=== PATIENT | female | born 1970 | race Caucasian/White ===

== ENCOUNTER 2020-09-04 10:39 | Emergency (ER) | payer OTHER, SELFPAY ==
[2020-09-04 10:48] VITALS: BP 133/92; PULSE 87; RESP 16; TEMP 36.3; O2SAT 100
--- NOTE | 2020-09-04 11:16 | ED.GENADULT ---
HPI - General Adult General Chief complaint: Urogenital-Female Stated complaint: POS UTI Source: patient Mode of arrival: ambulatory Limitations: no limitations History of Present Illness HPI narrative: Patient presents for evaluation of urinary symptoms for the last few weeks. She reports urinary urgency and dysuria. In the last few days she has developed some right flank pain. Denies any fever, chills, nausea, vomiting. He did have some cramping abdominal region yesterday. She took cranberry pills and cranberry juice with only some improvement. She states she had a dental extraction and was clindamycin for this a few weeks ago. Denies any additional complaints or concerns. She has a hx of colon cancer, s/p hemicolectomy and chemo, in remission for the last eight years. Related Data Allergies Allergy/AdvReac Type Severity Reaction Status Date / Time Penicillins Allergy Unknown Verified 09/04/20 11:01 Review of Systems Review of Systems: Narrative: CONSTITUTIONAL: Denies fever, chills, or sweats. EYES: Denies visual changes, redness, or discharge. ENT: Denies rhinorrhea, congestion, sore throat, or otalgia. CARDIOVASCULAR: Denies chest pain, palpitations, or edema. RESPIRATORY: Denies cough or dyspnea. GASTROINTESTINAL: Reports abdominal cramping yesterday, now resolved. Denies any nausea, vomiting, or diarrhea. GENITOURINARY: Reports dysuria, urinary urgency and right flank pain SKIN: Denies rash or itching. MUSCULOSKELETAL: Denies back pain, joint pain, or myalgia. NEUROLOGIC: Denies headache, numbness, dizziness, or weakness. PSYCHIATRIC: Denies anxiety or depression. FOR[facility]LY [facility] Past Medical History Medical History (Updated 09/04/20 @ 11:23 by OSMAR Jurado, IVÁN) Colon cancer Tetralogy of Fallot Surgical History Surgical History H/O hemicolectomy H/O tooth extraction Family History Family History Mother No pertinent past medical history Father No pertinent past medical history Social History Social History Smoking status: Never smoker Alcohol intake: current Alcohol use details: social Substance use: never Gender identity (if verbalized by the patient): Female Exam Narrative: Exam Narrative: GENERAL: Well-appearing, well-nourished, and in no acute distress. HEAD: Normocephalic, atraumatic. EYES: PERRLA and EOMI. ENT: Nares clear, no rhinorrhea or epistaxis. Mucous membranes moist. Oropharynx without tonsillar hypertrophy exudate or other lesions. Bilateral TMs pearly pruitt nonbulging NECK: Supple. No adenopathy or masses. No carotid bruits or JVD CHEST: Clear to auscultation. No respiratory distress. No wheezes rales or rhonchi HEART: Regular rate and rhythm. No murmur heard. Normal peripheral pulses. ABDOMEN: Soft, nontender, nondistended, normal active bowel sounds. EXTREMITIES: Normal range of motion. No edema. SKIN: Warm, dry, no rash. NEURO: No focal deficits. Alert and oriented x3. PSYCH: Normal mood and affect. Course Course Emergency Course: Patient presents for evaluation of urinary symptoms for the last 2 weeks. She denies any fever, chills, nausea, vomiting. She had urine dipstick was positive for leukocytes but negative for nitrites. We will send for urinalysis and reflex to culture. Given right flank pain, will treat as pyelonephritis Vital Signs Vital signs: Vital Signs Temperature 36.3 C L 09/04/20 10:48 Pulse Rate 87 09/04/20 10:48 Respiratory Rate 16 09/04/20 10:48 Blood Pressure 133/92 H 09/04/20 10:48 Pulse Oximetry 100 09/04/20 10:48 Temperature 36.3 C L 09/04/20 10:48 Pulse Rate 87 09/04/20 10:48 Respiratory Rate 16 09/04/20 10:48 Blood Pressure 133/92 H 09/04/20 10:48 Pulse Oximetry 100 09/04/20 10:48 Medical Decision Making Di
== END 2020-09-04 11:32 | disposition home or self-care (01) ==
PROVIDERS: Emergency Provider Nurse Practitioner
DX: N39.0 Urinary tract infection, site not specified (principal); Z85.038 Personal history of other malignant neoplasm of large intestine; Q21.3 Tetralogy of Fallot
CPT/HCPCS: 81003; 87077; 87086; 87088; 87186; 99213; G0463

== ENCOUNTER 2023-02-23 21:59 | Emergency (ER) | payer OTHER, BC, SELFPAY ==
--- NOTE | ~2023-02-23 | CT_ITS ---
EXAMINATION: CT brain wo con INDICATION: Headache COMPARISON: None TECHNIQUE: Standard unenhanced head CT. The dose-length product (DLP) was 983.67 mGy-cm. The mA was a djusted according to patient size. Iterative reconstruction technique was employed. FINDINGS: There is no intracranial hemorrhage, acute infarction, or abnormal mass lesion. The ventric les are normal. There is no abnormal mass effect or midline shift. The pruitt-white matter differentiat ion is normal. The basal cisterns are patent. The orbits are normal. The paranasal sinuses, mastoids and calvarium are normal. IMPRESSION: 1. No acute intracranial abnormality. Reviewed, dictated and finalized at location A.
--- NOTE | ~2023-02-23 | CT_ITS ---
EXAMINATION: CT cervical spine wo con DATE: 02/23/2023 23:53 INDICATION: Neck pain TECHNIQUE: Computed tomography (CT) of the cervical spine was performed without intravenous contrast. The dose-length product (DLP) was 143.35 mGy-cm. Automated exposure control and iterative reconstruc tion technique were employed. COMPARISON: None FINDINGS: There are 2 mm of retrolisthesis of C5 on C6 and C6 on C7. The vertebral body heights are m aintained. There is mild loss of intervertebral disc space height at C5-6 and C6-7. The odontoid proc ess is intact. The prevertebral soft tissues are normal. IMPRESSION: 1. Mild cervical spondylosis without acute findings. Reviewed, dictated and finalized at location A.
--- NOTE | ~2023-02-23 | XR_ITS ---
EXAMINATION: XR chest 2V DATE: 02/24/2023 01:23 INDICATION: Chest pain TECHNIQUE: Frontal and lateral views of the chest are obtained COMPARISON: None available FINDINGS: The lungs are free of acute opacities. No pleural effusion or pneumothorax. The heart size is normal. Small median sternotomy wires are consistent with pediatric cardiac surgery. The visualize d bones and soft tissues are unremarkable. IMPRESSION: 1. No acute cardiopulmonary abnormality. Reviewed, dictated and finalized at location A.
[2023-02-23 22:01] VITALS: BP 149/90; PULSE 106; RESP 16; O2SAT 100
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
[2023-02-23 23:09] VITALS: BP 129/84; PULSE 101; RESP 12
[2023-02-23 23:16] VITALS: BP 126/85; PULSE 102; RESP 14; O2SAT 100
[2023-02-24 00:19] VITALS: PULSE 110; RESP 16; O2SAT 100
--- NOTE | 2023-02-24 00:41 | ECG_ITS ---
Measurements Intervals [place] Rate: 121 P: 48 ID: [id number] QRS: 44 QRSD: 127 T: 70 QT: 344 QTc: 488 Interpretive Statements SINUS TACHYCARDIA RIGHT BUNDLE BRANCH BLOCK ABNORMAL ECG NO PREVIOUS ECG AVAILABLE FOR COMPARISON Electronically Signed On 02-24-2023 7:42:43 CDT by Elliott Lau D.O.
[2023-02-24 01:21] LABS: Basophils Absolute Auto 0.1 K/mm3 (0.0-0.1); Basophils Percent Auto 0.5 % (0.2-1.2); Eosinophils Absolute Auto 0.1 K/mm3 (0-0.3); Eosinophils Percent Auto 0.6 % (0-4.4); Hematocrit 43.6 % (37.0-47.0); Hemoglobin 13.6 g/dL (12.0-15.0); Immature Granulocyte Absolute 0.06 K/mm3 (0.00-0.031); Immature Granulocyte Percent A 0.4 % (0-0.5); Lymphocytes Absolute Auto 1.77 K/mm3 (0.9-3.2); Lymphocytes Percent Auto 11.3 % (18.3-44.2); Mean Corpuscular HGB Conc 31.2 g/dl (32-36); Mean Corpuscular Hemoglobin 25.8 pg (26-34); Mean Corpuscular Volume 82.7 fl (80-100); Mean Platelet Volume 9.6 fl (7.4-10.4); Monocytes Absolute Auto 0.5 K/mm3 (0.1-0.6); Monocytes Percent Auto 3.3 % (2.6-8.5); Neutrophils Absolute Auto 13.2 K/mm3 (1.3-6.7); Neutrophils Percent Auto 83.9 % (45.5-73.1); Platelet Count Result 328 k/mm3 (150-375); Red Blood Count 5.27 M/mm3 (4.2-5.4); White Blood Count 15.7 K/mm3 (4.5-10.0)
[2023-02-24 01:32] VITALS: PULSE 122; RESP 13; O2SAT 100
[2023-02-24 01:33] LABS: Alanine Aminotransferase 28 U/L (6-35); Albumin Level 4.6 g/dL (3.5-5.1); Alkaline Phosphatase 74 U/L (38-126); Anion Gap 13 mmol/L (8-16); Aspartate Amino Transferase 35 U/L (14-36); Bilirubin,Total 0.3 mg/dL (0.2-1.3); Blood Urea Nitrogen 11 mg/dL (7-17); Calcium 9.1 mg/dL (8.4-10.2); Carbon Dioxide 21 mmol/L (22-30); Chloride 112 mmol/L (98-107); Estimated Glomerular Filt Rate > 60; Glucose 112 mg/dL (65-110); Potassium 3.6 mmol/L (3.4-5.0); Sodium 146 mmol/L (137-145)
[2023-02-24 01:45] LABS: Troponin I < 0.012 ng/mL (0.000-0.034)
[2023-02-24 04:42] LABS: Troponin I < 0.012 ng/mL (0.000-0.034)
[2023-02-24 05:13] VITALS: TEMP 37
[2023-02-24 05:15] VITALS: BP 137/88; PULSE 98; RESP 16; O2SAT 100
== END 2023-02-24 05:15 | disposition home or self-care (01) ==
PROVIDERS: Preventive Medicine Aerospace Medicine; Emergency Provider Emergency Medicine
DX: R07.9 Chest pain, unspecified (principal); V89.2XXA Person injured in unspecified motor-vehicle accident, traffic, initial encounter; Z85.038 Personal history of other malignant neoplasm of large intestine
CPT/HCPCS: 36415; 70450; 71046; 72125; 80053; 84484; 85025; 93005; 99284

== ENCOUNTER 2025-01-16 10:10 | Emergency (ER) | payer BC, SELFPAY ==
--- NOTE | ~2025-01-16 | XR_ITS ---
EXAMINATION: XR ankle LT min 3V DATE: 01/16/2025 11:07 INDICATION: Left ankle pain and swelling post fall TECHNIQUE: Anteroposterior, oblique, mortise, and lateral views of the left ankle were obtained. COMPARISON: None. FINDINGS: There is an oblique fracture through the distal fibula with a fracture plane exiting medially at the level of the tibiotalar joint. There is one cortical width lateral displacement. No other fracture i dentified. Specifically the medial and posterior malleoli as well as the talar dome are intact. Ank le mortise remains congruent. 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 Small plantar calcaneal spur. S oft tissue swelling overlying the lateral malleolus and extending anterior to the ankle. No ankle johana nt effusion. IMPRESSION: 1. Minimally displaced oblique fracture of the distal left fibula consistent with a Perdomo type B inju ry pattern. IMPRESSION: 1. Reviewed, dictated and finalized at location A. [facility] IMPRESSION: 1. Minimally displaced oblique fracture of the distal left fibula consistent wi th a Perdomo type B injury pattern. IMPRESSION: 1.
--- OUTSIDE RECORDS SUMMARY | 2025-01-16 10:14 | XMS_ITS | Clinical Summary ---
Author Organization [facility] Address [address] [place] [address] Care Team Providers Care Traveling Missionary Name Role Phone Unknown, Notinfile Primary Care Provider Unavail able Allergies Active Allergy Reactions Criticality Noted Date Comments Penicillins Rash Medium Reaction: Rash, Medications cholecalciferol (VITAMIN D-3) 2,000 unit tablet Take 1 tablet (2,000 Units total) by mouth daily Active b complex vitamins capsule Take 1 capsule by mouth daily Active iron 18 mg tablet Take 2 tablets by mouth daily Active multivitamin capsule Take 1 capsule by mouth daily Active zinc acetate 25 mg (zinc) capsule Take by mouth Active magnesium oxide 400 mg magnesium capsule Take by mouth Active folic acid (FOLVITE) 400 mcg tablet Take 1 tablet (400 mcg total) by mouth daily Active celecoxib (CeleBREX) 200 mg capsuleIndicatio ns:Bilateral shoulder pain, unspecified chronicity Take 1 capsule (200 mg total) by mouth daily for 14 days 14 capsule 09/17/2024 Active Active Problems Problem Noted Date Diagnosed Date Pancreatic cyst 11/04/2023 Chronic deafness 10/03/2021 Diarrhea 08/17/2019 Edema 08/17/2019 Gastroesophageal reflux disease 08/07/2019 Pulmonary insufficiency 09/12/2018 PFO (patent foramen ovale) 08/01/2018 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 H/O atrioventricular jeanie ablation 08/01/2018 History of uterine leiomyoma 06/20/2017 Intramural leiomyoma of uterus 06/20/2017 Hepatomegaly, not elsewhere classified 7 Liver mass 04/25/2017 History of malignant neoplasm of colon 6 Fallot's triad 04/01/2015 Overview (03/08/2017): Fallot trilogy Malignant neoplasm of colon 04/01/2015 Overview (03/08/2017): Colon cancer Abnormal magnetic resonance imaging study 2013 Supraventricular tachycardia 05/05/2013 Anemia 04/20/2013 Sebaceous cyst 02/26/2013 Palpitations 02/13/2012 Pulmonary valve insufficiency 05/10/2011 Assessment & Plan (02/14/2023 12:15 PM CDT): ToF sp repair in 1977 with residual severe PI and mild RV enlargement but normal function. ECHO pending from today. Asymptomatic. MRI in follow up in one year. Right ventricular hypertrophy 05/10/2011 Tetralogy of Fallot s/p repair 04/16/2011 Resolved Problems Problem Noted Date Diagnosed Date Resolved Date TOF (tetralogy of Fallot) 08/01/2018 Carcinoma of colon (CMS/HCC) 10/06/2014 08/22/2021 Encounters Date Type Department Care Team Description 01/11/2025 Telephone [facility] Oncology [address] [place] [address] Cordelia Pena RN 01/05/2025 Telephone [facility] Oncology [address] [place] [address] Cordelia Pena RN 12/22/2024 Telephone [facility] Gastroenterology [facility] Advanced Medicine [address] [place] [address] [place] [address] Dandre Yañez 12/17/2024 Telephone [facility] Gastroenterology [address] [facility] Advanced [facility] [address] [place] [address] [place] [address] Dandre Yañez 12/11/2024 Telephone [facility] Oncology [address] [place] [address] Radha Le CMA from Last 3 Months Immunizations Name Administration Dates Next Due Influenza, Quadrivalent, Split, Intramuscular Influenza, Quadrivalent, Spl it, Preservative Free, Intramuscular 09/14/2020,10/17/2016 Influenza, Trivalent, Preservative Free, Intramu scular 09/08/2015,09/24/2012 Moderna SARS-CoV-2 Monovalent Vaccination (12+ Y RS) 02/14/2021,01/11/2021 Pneumococcal Polysaccharide PPV23 09/08/2015 Tdap 10/08/2016,10/08/2016 Surgical History Surgery Date Site/Laterality Comments PORT REMOVAL 02/04/2013 N/A SECTION ABLATION TUBAL LIGATION COLECTOMY PARTIAL / TOTAL COLONOSCOPY UPPER GASTROINTESTINAL ENDOSCOPY Medical History Medical History Date Comments History of colon cancer 2011. S/ p Lsc colon resection, 6mo chemo. in remission Anemia Tetralogy of Fallot History of transfusion Colon cancer (CMS/HCC) (HCC) History of chemotherapy for colo n cancer Abnormal Pap smear of cervix Family History Medical History Relation Name Comments Hypertension Brother Family history of hypertension - (Added by TW Conv) Ovarian cancer Father's Sister Crohn's disease Mother Hypertension Mother Family history of hypertension - (Added by TW Conv) Breast cancer Neg Hx Colon cancer Neg Hx Deep vein thrombosis Neg Hx Thrombophilia Neg Hx Uterine cancer Neg Hx Relation Name Status Comments Brother Father's Sister Mother Social History Tobacco Use Types Packs/Day Years Used Date Smoking Tobacco: Never Smokeless Tobacco: Never Tobacco Cessation:Counseling Given: Not Answered Alcohol Use Standard Drinks/Week Comments Yes 0 (1 standard drink = 0.6 oz pur e alcohol) social Humiliation, Afraid, Rape, and Kick questionnair e Answer Date Recorded Fear of Current or Ex-Partner No Emotionally Abused No 12/26/2020 Physically Abused No 12/26/2020 Sexually Abused No 12/26/2020 Social Connection and Isolat ion Panel [NHANES] Answer Date Recorded Frequency of Communication w ith Friends and Family More than three times a week 12/26/2020 Frequency of Social Gatherin gs with Friends and Family Once a week 12/26/2020 Attends Nondenominational Services More than 4 times per year 12/26/2020 Active Member of Clubs or Organizations No 12/26/2020 Attends Club or Organization Meetings Never 12/26/2020 Marital Status 12/26/2020 AUDIT-C Answer Date Recorded Q1: How often do you have a drink containing alc ohol? 2-3 times a week 01/16/2024 Q2: How many drinks containi ng alcohol do you have on a typical day when you are drinking? 3 or 4 01/16/2024 Q3: How often do you have si x or more drinks on one occasion? Never 01/16/2024 [facility] Occupat ional Health - Occupational Stress Questionnaire Answer Date Recorded Feeling of Stress To some extent 12/26/2020 Exercise Vital Sign Answer Date Recorde d Days of Exercise per Week 3 days 2020 Minutes of Exercise per Session 30 min 12/26/2020 Personal Safety Answer Date Recorded Have you ever been in or are you currently in a harmful physical or emotional relationship or is someone making you feel afraid or unsafe? Denies 01/16/2024 Comments No Sex and Gender Information Value Date Recorded Sex Assigned at Not on file Legal Sex Female 3:37 AM [employer] WORK[employer] Gender Identity Not on file Sexual Orientation Not on file Obstetrics History Para Term AB IAB SAB Ectopic Multiple Livin g Live Births 3 2 2 1 1 2 2 Date Outcome GA Total Labor Labor/2nd/3rd Weight Sex Type Anes PTL Anna A1 A5 Name Clin Term CS-Un spec N Living Complications:None Term CS-Un spec N Living Complications:Failure to Pro terry in First Stage SAB SAB Last Filed Vital Signs Vital Sign Reading Time Taken Comments Blood Pressure 129/82 09/17/2024 8:59 AM CDT Pulse 68 09/17/2024 8:59 AM CDT Temperature 36.3 C (97.3 F) 01/16/2024 9:05 AM [employer] WORKER Respiratory Rate 15 01/16/2024 10:45 AM [employer]ER [employer]ORY WORKER Oxygen Saturation 100% 01/16/2024 10:45 AM RU[employer]ER FACTORY WORKER Inhaled Oxygen Concentration - - Weight 63.5 kg (140 lb) 09/17/2024 8:59 AM CDT Height 160 cm (5' 3 ) 09/17/2024 8:59 AM CDT Body Mass Index 24.8 09/17/2024 8:59 AM CDT Plan of Treatment Scheduled Procedures Name Priority Associated Diagnoses Date/Ti me COLONOSCOPY Open Access Malignant neoplasm of colon, unspecified part of colon (HCC) Health Maintenance Due Date Last Done Comments Depression Screening 1970 Hepatitis C Screening 1970 Hepatitis B Screening 1988 Zoster Vaccine (1 of 2) 2020 Covid-19 Vaccine ( season) 2024 02/14/2021, 01/11/2021 Influenza Vaccine (#1) 2024 , 10/17/2016, 10/17/2016, Additional history exists Cervical Cancer Screening 12/31/20242023, 12/31/2023, 12/27/2022 Regular Well Visit/Exam 18-64 12/31/2024 12/31/2023, 12/27/2022, 10/03/2021, Additional history exists Breast Cancer Screening-Mammogram 01/09/2025 01/09/2024, 12/27/2022, 10/03/2021, Additional history exists DTaP/Tdap/Td Vaccine (3 - Td or Tdap) 10/08/2026 10/08/2016, 10/08/2016 Colon Cancer Screening-Colonoscopy 12/26/2030 12/26/2020 Pneumococcal vaccine <65 Aged Out 09/08/2015 No longer eligible based on patient's age to complete this topic Procedures Procedure Name Priority Date/Time Associated Diagnosis Comments SCREENING MAMMOGRAM BILATERAL W ABHILASH Schedule Routine, Read Routine (OP Routine) 01/09/2024 2:40 PM [employer]ER [employer] WORKER Encounter for screening mammogram for malignant neoplasm of breast HIGH RISK HPV DNA DETECTION WITH GENOTYPING Routine 12/31/2023 10:34 AM RU[employer]ER [employer]ORY WORKER ASCUS with positive high risk HPV cervical Well woman exam with routine gynecological exam COLONOSCOPY 12/26/2020 12:40 PM RUBBER FA[employer]ORY WORKER from Last 3 Months or Most Recently Relevant to Health Maintenance Results * Screening Mammogram Bilateral W Abhilash (01/09/2024 2:40 PM RUBBER FA[employer]ORY WORKER) Anatomical Region Laterality Modality Breast Bilateral Mammography Narrative 01/09/2024 3:03 PM RUBBER [employer]ORY WORKER Examination: Screening Mammogram Bilateral W Abhilash: 01/09/24 Clinical: Encounter for screening mammogram for malignant neoplasm of breast. Prior Study Comparisons: Comparison was made to the prior available relevant studies at the time of interpretation. Findings: Bilateral No significant masses, malignant type calcifications, skin thickening, nipple retraction, or significant lymphadenopathy is noted in either breast. The CAD review showed no significant findings. The breasts are heterogeneously dense, which may obscure small masses. The patient will be notified of results by letter. Impression: BI-RADS ATLAS category (overall): 1 - Negative There is no mammographic evidence of malignancy. Routine Screening Mammogram in 1 Yr is recommended for bilateral Overall Assessment: 1 - Negative us Self Referral IMG MAMMO PROCEDURES Final Resul t * High Risk HPV DNA Detection with Genotyping (Molecular component) (12/31/2023 10:34 AM RUBBER FACTORY WORKER) HPV HR 16 Not Detected Not Detected [facility] HPV HR 18 Not Detected Not Detected [facility] HPV HR Non 16/18 Not Detected Not Detected [facility] Comment: Interpretive Data Nucleic acid amplification for detection of high-risk Human Papilloma virus (HPV) is performed by the [address] 4800 HPV test, which specifically detects high-risk HPV-16, 18, 31, 33, 35, 39, 45, 51, 52, 56, 58, 59, 66, and 68 genotypes. This assay has been approved by the [place] Food and Drug Administration for detection of HPV in cervical specimens collected by a physician using an endocervical brush/spatula or cervical broom and placed in the ThinPrep Pap Test PreservCyt collection containers. The performance characteristics of this test have been verified by the [facility]. Correlate with separately reported cytology results, as applicable. Interpretive data last revised 23 Endocervical 12/31/2023 10:3 4 AM RUBBER FACTORY WORKER 12/31/2023 3:19 PM RUBBER FACTORY WORKER Narrative [facility] - 01/02/2024 7:43 PM RUBBER FACTORY WORKER Clinical history and diagnosis->abnormal pap/ annual Number of vials->1 Testing type->Screening Last menstrual period (date if known)->11-30-23 Menstrual status->Perimenopausal Tania Little MD PhD LAB BODY FLUIDS AND ST OOLS ORDERABLES Final Result [facility] [address] Department [place] [address] * COLONOSCOPY (12/26/2020 12:40 PM RUBBER FACTORY WORKER) Anatomical Region Laterality Modality Other Narrative Procedure Note Kade Galvin MD - 12/26/2020 12:40 PM [facility] Patient Name: Elodia Walton Procedure Date: 12/26/2020 12:40 PM Date of : 1970 Admit Type: Outpatient Age: 50 Gender: Female Attending MD: Cassidy Witt Room: [facility] ENDOSCOPY ROOM 3 Note Status: Addendum Procedure: Colonoscopy Indications: High risk colon cancer surveillance: Personalhistory of colon cancer, Last colonoscopy: 2018. S/presection and chemo. Had ?6 colonoscopies over 9 years period after surgery. Surveillance colonoscopy found some polyps. Last colonoscopy was in 2019. Referring MD: Ishaan Malik M.D. Providers: Kade Galvin M.D. Medicines: Monitored Anesthesia Care Complications: No immediate complications. Estimated Blood Loss: Estimated blood loss was minimal. Procedure: Pre-Anesthesia Assessment: - Prior to the procedure, a History and Physical was performed, and patient medications, allergies and sensitivities were reviewed. The patient's toleranceof previous anesthesia was reviewed. - The risks and benefits of the procedure and the sedation options and risks were discussed with the patient. All questions were answered and informed consent was obtained. - Patient identification and proposed procedure were verified prior to the procedure. - Immediately prior to administration ofmedications, the patient was re-assessed for adequacy to receive sedatives. The benefits, risks and alternatives of theprocedure and sedation were discussed and informed consent was obtained. All questions were answered. Please referto the signed informed consent document in the medical record. The scope was passed under direct vision.The [id number] endoscope was introduced throughthe anus and advanced to the cecum, identified by appendiceal orifice and ileocecal valve. The colonoscopy was performed without difficulty. The patient tolerated the procedure well. The quality of the bowel preparation was evaluated using the BBPS ([place] Bowel Preparation Scale) with scores of:Right Colon = 3 (entire mucosa seen well with no residual staining, small fragments of stool or opaqueliquid), Transverse Colon = 2 (minor amount of residual staining, small fragments of stool and/or opaque liquid, but mucosa seen well) and Left Colon = 2(minor amount of residual staining, small fragments ofstool and/or opaque liquid, but mucosa seen well). Thetotal BBPS score equals 7. The bowel preparation used was GoLYTELY. Bowel prep was administered using a split dose. The quality of the bowel preparation wasadequate. Findings: The perianal and digital rectal examinations were normal. A 2 mm polyp was found in the rectum. The polyp was sessile. Thepolyp was removed with a jumbo cold forceps. Resection and retrieval were complete. There was evidence of a prior functional end-to-end colo-colonic anastomosis in the sigmoid colon. This was patent and wascharacterized by healthy appearing mucosa. The anastomosis was traversed. A 4 mm polyp was found in the descending colon. The polyp wassessile. The polyp was removed with a cold snare. Resection and retrieval were complete. A 10 mm polyp was found in the hepatic flexure. The polyp was flat.The polyp was removed with a saline injection-lift technique using a hot snare. Resection and retrieval were complete. To prevent bleedingafter the polypectomy, two hemostatic clips were successfully placed (MR conditional). There was no bleeding during the procedure. The exam was otherwise without abnormality. Impression: - One 2 mm polyp in the rectum, removed with a jumbo cold forceps. Resected and retrieved. - Patent functional end-to-end colo-colonic anastomosis, characterized by healthy appearingmucosa. - One 4 mm polyp in the descending colon, removedwith a cold snare. Resected and retrieved. - One 10 mm polyp at the hepatic flexure, removedusing injection-lift and a hot snare. Resected andretrieved. Clips (MR conditional) were placed. - The examination was otherwise normal. Recommendation: - Discharge patient to home. - Await pathology results. - Repeat colonoscopy in 3 years for surveillance of multiple polyps. - Return to referring physician as previouslyscheduled. Attending Participation: I personally performed the entire procedure. Electronically signed by Kade Galvin MD Kade Galvin M.D. 12/26/2020 2:24:23 PM . Number of Addenda: 1 Note Initiated On: 12/26/2020 12:40 PM Recognized by the [place] [employer] for promoting quality in endoscopy Addendum Number: 1 Addendum Date: 12/26/2020 2:33:56 PM Additional finding A 5 mm sessile polyp was found in the transverse colon. Polypectomywas performed by a cold snare. Polypectomy was complete. In summary, the patient had total 4 polyps: hepatic flexure,transverse colon, descending colon and rectum. Recommendation: A surveillance colonoscopy in 3 years (2023) due to multiple colonic polyps. Electronically signed by Kade Galvin MD Kade Galvin M.D. 12/26/2020 2:36:21 PM . Kade Galvin MD ENDOSCOPY PROCEDUR ES Edited Result - Final from Last 3 Months or Most Recently Relevant to Health Maintenance Insurance [employer] [facility] [place] [facility] Advance Directives For more information, please contact: [phone] * Full Code (Latest Code Status on File) Date Activated Date Inactivated Comments 01/16/2024 8:56 AM 01/16/2024 3:12 PM * Full Code Date Activated Date Inactivated Comments 12/26/2020 11:55 AM 12/26/2020 7:48 PM Care Teams Traveling Missionary Relationship Specialty Start Date End Date Unknown, Notinfile PCP - General 03/30/24
--- OUTSIDE RECORDS SUMMARY | 2025-01-16 10:14 | XMS_ITS | Continuity of Care Document ---
Author Organization [facility] Address [address] [place] [address] Phone Care Team Providers Care Automotive Internet Sales Consultant Name Role Phone Henrique Trinidad MD Unavailable Unavailable Allergies, Adverse Reactions, Alerts Substance Reaction Status Criticality Penicillins Rash Active No Information Medications Medication Instructions Dosage Effective Dates (start - stop) Status Comments multivitamin tablet - Active Procedures Procedure Date Office/outpatient visit,[facility] 2017 Advance Directives Directive Yes / No Effective Date File Name No Information Encounters Encounter Description Practice Location Reason(s) For Visit Diagnoses Date Provider Providers Copied on Encounter Office/outpa tient visit,[facility], [facility], [address], [id number], [phone] [facility] left knee pain (chief complaint) Chondromalacia patellae, left knee [address] Viv[address] Duenas. [address] [facility] [address], [place], [id number] , . tel:[phone] Family History Family Member Type Diagnosis Age At Onset Brother Problem (finding) hypertension Mother Problem (finding) osteoporosis Paternal aunt Problem (finding) Cancer, unknown Payers Payer name Insurance type Covered republican ID Osiris nicholasalla(s) [facility] [employer] [id number] Social History Type Description Quantity Date Captured Comments Alcohol Use Details Caffeine Use Details Unknown Tobacco Use Status No Information Smoking Status Never smoker Non-Smoking Tobacco Use Details : No Details Available : No Details Available Sex Female Vital Signs Date / Time: Height Weight BMI Pulse Rate Blood Pressure Temperature Respiratory Rate Body Surface Area Head Circumference Head Circ. Percentile Wt./Neo. Percentile BMI percentile Pulse Ox Inhaled Ox 9:05 AM 64.00 in 67.132 kg (148.00 lbs) 25.4 0 kg/m fcomickey (2) Chief Complaint And Reason For Visit From encounter dated '06/24/2018 09:10'. left knee pain (chief complaint). Description: Ms Walton is a 47 year old female who complains of left knee pain. She presents with pain on the left side. She states that the symptoms have been acute non-traumatic and began on 06/19/2018. The symptoms occur rarely. The problem is resolved. Currentlythe patient states that the symptoms are mild. The pain is described as aching. The patient is experiencing pain in the following location: anterior on the left side. She rates her current pain as 0/10. The symptoms are aggravated by no specific activity. Elodia states that the symptoms are relieved by ice. In addition to left knee pain the patient is also experiencing popping. Pertinent negatives include chills, fever, locking and tingling. The patient has had a previous x-ray. She has had no previous treatment. Patient has not had any pertinent therapy for this condition. Patient has had no prior surgeries. She experienced previous injury. This was 20 years ago and sounds like a patellar subluxation. No issues since then. Reason For Referral Reason For Referral No Information History Of Present Illness Encounter Date Complaint History Of Prese nt Illness left knee pain Ms Walton is a 47 year old female who complains of left knee pain. She presents with pain on the left side. She states that the symptoms have been acute non-traumatic and began on 06/19/2018. The symptoms occur rarely. The problem is resolved. Currently the patient states that the symptoms are mild. The pain is described as aching. The patient is experiencing pain in the following location: anterior on the left side. She rates her current pain as 0/10. The symptoms are aggravated by no specific activity. Elodia states that the symptoms are relieved by ice. In addition to left knee pain the patient is also experiencing popping. Pertinent negatives include chills, fever, locking and tingling. The patient has had a previous x-ray. She has had no previous treatment. Patient has not had any pertinent therapy for this condition. Patient has had no prior surgeries. She experienced previous injury. This was 20 years ago and sounds like a patellar subluxation. No issues since then. Functional Status Date Functional Assessmen t No Information Instructions Date Instruction Additional Infor chaka Currently she has no symptoms, they have resolved. We discussed the need for ice, OTC meds, and activity modifications if she has brief issues like this again. If they persist, we may consider injection options or more formal physical therapy. She will contact me if symptoms return, otherwise may follow up as needed. Questions answered, verbalized understanding. Related to Chondromalacia patellae, left knee Assessments Type Assessment Date assessment Chondromalacia patellae, left kn ee impression We discussed in deta il the pathophysiology, symptoms, and treatment options of patellofemoral chondrosis/osteoarthritis. We discussed specifically the non-operative management of this problem, as well as the need for a comprehensive treatment program including icing, activity modifications, weight control/weight loss, and a detailed physical therapy regimen. We discussed the role of injections, including cortisone's limited role, viscosupplementation and biologic injections. We discussed the rare indication or arthrosopic intervention and possible need for PFA vs. TKA in the future. After a thorough discussion the patient and I have agreed to proceed with the following treatment plan: Mental Status Date Cognitive Assessment Orientation - Hamilton ed to time, place, person, situation.Normal Orientation Patient Care Teams Name Effective Dates (start - stop) Status Members No Information
--- OUTSIDE RECORDS SUMMARY | 2025-01-16 10:14 | XMS_ITS | Patient Health Summary ---
Author Organization [facility] Address [address] [place] [address] Care Team Providers Care Timber Management Technician Name Role Phone Unavailable Primary Care Provider Unavailabl e Note from [facility],non-owned Affiliates and Associated Physician Practices is amultiple site organization consisting of ambulatory clinics and hospital sitesin [place], [place], [place] and [place]. This disclosure is being madepursuant to the Care Everywhere program and may not contain all information available regarding this patient. Last updated 18.[facility] Allergies * Penicillins(Rash) -Medium Criticality Active Problems Problem Noted Date Diagnosed Date Hepatomegaly, not elsewhere classified 7 Social History Tobacco Use Types Packs/Day Years Used Date Smoking Tobacco: Never Alcohol Use Standard Drinks/Week Comments No 0 (1 standard drink = 0.6 oz pur e alcohol) Sex and Gender Information Value Date Recorded Sex Assigned at Not on file Gender Identity Not on file Sexual Orientation Not on file Last Filed Vital Signs Vital Sign Reading Time Taken Comments Blood Pressure 118/81 04/25/2017 2:17 PM CDT Pulse 83 04/25/2017 2:17 PM CDT Temperature 36.8 C (98.3 F) 07/27/2015 9:00 AM CDT Respiratory Rate 18 04/25/2017 2:17 PM CDT Oxygen Saturation 100% 07/27/2015 1:15 PM CDT Inhaled Oxygen Concentration - - Weight 72.1 kg (159 lb) 04/25/2017 2:17 PM CDT Height 160 cm (5' 3 ) 04/25/2017 2:17 PM CDT Body Mass Index 28.17 04/25/2017 2:17 PM CDT Procedures * CT GUIDED NEEDLE PLACEMENT(Performed 07/27/2015) * CT GUIDED NEEDLE PLACEMENT(Performed 07/27/2015) * PATHOLOGY TISSUE(Performed 07/27/2015) * COMPREHENSIVE METABOLIC PANEL(Performed 07/27/2015) * PTT [facility](Performed 07/27/2015) * PT-INR [facility](Performed 07/27/2015) * CBC W AUTO DIFFERENTIAL(Performed 07/27/2015) * CBC W AUTO DIFFERENTIAL(Performed 07/27/2015) * BASIC METABOLIC PANEL (CALCIUM TOTAL)(Performed 06/08/2015) * PTT [facility](Performed 06/08/2015) * PT-INR [facility](Performed 06/08/2015) * CBC W AUTO DIFFERENTIAL(Performed 06/08/2015) * CBC W AUTO DIFFERENTIAL(Performed 06/08/2015) * PET CT WHOLE BODY(Performed 04/29/2015) * GLUCOSE - POINT OF CARE (AMB) [facility](Performed 04/29/2015) * GLUCOSE - POINT OF CARE (AMB) [facility](Performed 04/29/2015) * ALPHA FETOPROTEIN BLOOD TUMOR MARKER(Performed 04/06/2015) * CANCER ANTIGEN (CA) 19-9(Performed 04/06/2015) * CEA BLOOD(Performed 04/06/2015) * COMPREHENSIVE METABOLIC PANEL(Performed 04/06/2015) * PT-INR [facility](Performed 04/06/2015) * CBC W AUTO DIFFERENTIAL(Performed 04/06/2015) * CBC W AUTO DIFFERENTIAL(Performed 04/06/2015) Results * CT GUIDED NEEDLE PLACEMENT (07/27/2015 10:55 AM CDT) Only the most recent of2 resultswithin the time period is included. Anatomical Region Laterality Modality Abdomen Other Impressions 07/28/2015 2:02 PM CDT Impression: CT-guided biopsy of hepatic segment 8 lesion, as described above. Note: Pathology report is pending at the time of this dictation. Dr. Nando Hernandez performed/was present throughout the procedure and provided the moderate sedation service. Please see the nursing sedation flowsheet. This report was approved by Diana Mello on 07/27/2015 1:49 PM . I, Dr. NANDO HERNANDEZ MD have personally reviewed and interpreted this examination/study. This report was electronically signed by NANDO HERNANDEZ MD on 07/28/2015 2:02 PM . Narrative 07/28/2015 2:02 PM CDT History: Elodia Walton is a 44 y.o. female with history of T3N0 colonic adenocarcinoma status post left hemicolectomy and chemotherapy who was found to have two indeterminate liver lesions, reportedly in segments 5 and 8 with signal characteristics suggestive of FNH. Operators: 1. Dr. Nando Hernandez, Attending Physician 2. Dr. Dinaa Mello, Resident Physician Anesthesia: 1. Local anesthesia - 10 ml of 1% lidocaine 2. Intravenous conscious sedation - Versed 2 mg and Fentanyl 100 mcg Procedure: 1. Limited non-contrast CT examination of the liver. 2. CT-guided biopsy of hepatic segment 8 lesion. Start time: 1037 End time: 1124 Sedation initiated time: 1029 Procedure in detail: The procedure and possible complications were explained to the patient in detail, and informed consent was obtained. The patient was placed in a prone position on the CT table and a limited non-contrast CT examination was performed with radio-opaque grid markers over the region of interest. The limited CT examination of the liver was performed, demonstrating the known hepatic segment 8 lesion. The patient received intravenous Versed and Fentanyl for conscious sedation. A qualified radiology nurse monitored the patient?s vital signs throughout the procedure. The marked site and skin around the region was prepped and draped in a sterile fashion. Local anesthesia was provided by the injection with 1% Lidocaine. A 17 gauge co-axial needle system was advanced in stages under CT guidance. With needle tip at the edge of the lesion, three core samples were acquired with 18 gauge biopsy gun. The samples were sent to pathology service. Final post-biopsy imaging did not show any immediate complications. The patient tolerated the procedure well and was transferred to the holding area in stable condition. Procedure Note Nando Hernandez MD - 03/01/2018 History: Elodia Walton is a 44 y.o. female with history of T3N0 colonicadenocarcinoma status post left hemicolectomy and chemotherapy who wasfound to have two indeterminate liver lesions, reportedly in segments 5and 8 with signal characteristics suggestive of FNH. Operators: 1. Dr. Nando Hernandez, Attending Physician 2. Dr. Diana Mello, Resident Physician Anesthesia: 1. Local anesthesia - 10 ml of 1% lidocaine 2. Intravenous conscious sedation - Versed 2 mg and Fentanyl 100 mcg Procedure: 1. Limited non-contrast CT examination of the liver. 2. CT-guided biopsy of hepatic segment 8 lesion. Start time: 1037 End time: 1124 Sedation initiated time: 1029 Procedure in detail: The procedure and possible complications were explained to the patient indetail, and informed consent was obtained. The patient was placed in aprone position on the CT table and a limited non-contrast CT examinationwas performed with radio-opaque grid markers over the region of interest. The limited CT examination of theliver was performed, demonstrating the known hepatic segment 8 lesion. The patient received intravenous Versed and Fentanyl for conscioussedation. A qualified radiology nurse monitored the patient?s vital signsthroughout the procedure. The marked site and skin around the region was prepped and draped in asterile fashion. Local anesthesia was provided by the injection with 1%Lidocaine. A 17 gauge co-axial needle system was advanced in stages underCT guidance. With needle tip at the edge of the lesion, three core samples were acquired with 18 gauge biopsygun. The samples were sent to pathology service. Final post-biopsy imaging did not show any immediate complications. Thepatient tolerated the procedure well and was transferred [facility] in stable condition. IMPRESSION Impression: CT-guided biopsy of hepatic segment 8 lesion, as describedabove. Note: Pathology report is pending at the time of this dictation. Dr. Nando Hernandez performed/was present throughout the procedure andprovided the moderate sedation service. Please see the nursing sedationflowsheet. This report was approved by Diana Mello on 07/27/2015 1:49 PM . I, Dr. NANDO HERNANDEZ MD have personally reviewed and interpreted thisexamination/study. This report was electronically signed by NANDO HERNANDEZ MD on 07/28/20152:02 PM . Jose Cazares MD CT ORDERABLES * PATHOLOGY TISSUE (07/27/2015 10:36 AM CDT) Surgical Pathology Tissue CLINICAL HISTORY: There is no clinical history provided. FINAL DIAGNOSIS: LIVER, LESION, BIOPSY: - FEATURES CONSISTENT WITH FOCAL NODULAR HYPERPLASIA - MINUTE NON-LESIONAL HEPATIC PARENCHYMA WITH MASS EFFECTS GROSS DESCRIPTION: The specimen is received fixed in formalin for gross and microscopic examination in one container, labeled with the patient's name, Elodia Walton and liver lesion and consists of three soft, yellow-callahan liver cores measuring 2 cm in length x 0.2 cm in diameter and 1 cm in length x 0.2 in diameter and 1 cm in length x 0.2 cm in diameter and the entire specimen is submitted in toto as A1. PD/MNR for YC/ls MICROSCOPIC DESCRIPTION: Sections show multiple liver cores with dense fibrotic areas. Thick-walled muscular vessels are present in the fibrous tissue and not associated with similar sized bile duct. Prominent ductular reaction and chronic inflammation are present especially at the junction of the stroma and liver parenchymal. Immunohistochemical stains are performed with appropriate control. The hepatocytes are negative for glypican 3 and show normal membrane staining for beta-catenin. Glutamine synthetase shows alteration of strong and weak stained areas, imparting a map-like pattern. CD34 highlights the microvessels. These features are consistent with those of focal nodular hyperplasia. Only minimal non-lesional liver tissue is present in the current biopsy. Trichrome stain highlights the thick fibrous bindles. Reticulin stain reveals predominantly thin hepatocyte trabeculae with focal reticulin loss. Iron stain is negative. PAS-D is negative for rpjqd-2-xdpgjdlclkh globules. JL/YC The performance characteristics of all immunohistochemical and indirect immunofluorescence stains (if any) cited in this report were determined by the Histopathology Laboratory of [facility]. Some of these tests were developed by our own laboratory and have not been cleared or approved by the US Food and Drug Administration. The FDA does not require this test to go through premarket FDA review. These tests are used for clinical purposes. They should not be regarded as investigational or for research. This laboratory is certified under the Clinical Laboratory Improvement Amendments (CLIA) as qualified to perform high complexity clinical laboratory testing. This case has been personally reviewed and interpreted by the attending (teaching) pathologist. Final Diagnosis performed by Leland Yeung MD. Electronically signed 07/30/2015 [facility] Other (qualifier value) 07/27/2015 10:36 AM CDT 07/27/2015 12:53 PM CDT Narrative [facility] - 07/30/2015 3:10 PM CDT Collection Date->07/27/15 Collection Time->10:36 AM Specimen A->Liver Nando Hernandez MD LAB - PATHOLOGY/C YTOLOGY ORDERABLES [facility] ([place]) * PTT U (07/27/2015 9:41 AM CDT) Only the most recent of2 resultswithin the time period is included. APTT 32.8 23.0 - 38.4 Seconds [facility] Comment:Suggested therapeuti c range for full dose I.V. heparin therapy for venous thromboembolism is 66.0-91.0 seconds. Blood specimen (specimen) BLOOD SPECIMEN / Unknown 07/27/2015 9:41 AM CDT 07/27/2015 9:44 AM CDT Narrative [facility] - 07/27/2015 10:03 AM CDT Is patient on Heparin, Argatroban or Dabigatran?->N Bernarda Gupta MD LAB - COAGULATION ORDERABLES Performing Organization Address [facility] de Phone Number [address] [phone] * PT-INR [facility] (07/27/2015 9:41 AM CDT) Only the most recent of3 resultswithin the time period is included. PT 12.9 12.1 - 14.8 Seconds [facility] INR 1.0 See Comment [facility] Comment: Suggested therapeutic range for low-intensity coumadin therapy for venous thromboembolism prophylaxis is an INR of 2.0-3.0. For high risk patients (Mitral Valve Prosthesis, Atrial Fibrillation, history of TIA/stroke), suggested prophylactic therapeutic range is an INR of 2.5-3.5. Blood specimen (specimen) BLOOD SPECIMEN / Unknown 07/27/2015 9:41 AM CDT 07/27/2015 9:44 AM CDT Narrative [facility] - 07/27/2015 10:02 AM CDT Is patient on Heparin, Argatroban or Dabigatran?->N Bernarda Gupta MD LAB - COAGULATION ORDERABLES Performing Organization Address [facility] Co de Phone Number [address] [phone] * (ABNORMAL) CBC W AUTO DIFFERENTIAL (07/27/2015 9:41 AM CDT) Only the most recent of6 resultswithin the time period is included. WBC 5.3 3.5 - 10.5 10 3/uL [facility] RBC 4.60 3.90 - 5.00 10 6/uL [facility] Hemoglobin 14.4 12.0 - 15.5 g/dL [facility] Hematocrit 42.2 35.0 - 45.0 % [facility] MCV 91.7 81.0 - 97.0 fL [facility] MCH 31.3 28.0 - 34.0 pg [facility] MCHC 34.1 32.0 - 36.0 g/dL [facility] Platelet Count 194 150 - 400 10 3/uL [facility] RDW-SD 44.5 36.0 - 50.0 fL [facility] RDW-CV 13.3 11.2 - 14.8 % [facility] MPV 10.5 9.3 - 12.8 fL [facility] Neutrophils % 77.3(H) 35.0 - 70.0 % [facility] Lymphocytes % 13.4(L) 19.7 - 55.1 % [facility] Monocytes % 8.9 3.0 - 15.0 % [facility] Eosinophils % 0.2 0.0 - 6.0 % [facility] Basophil % 0.2 0.0 - 1.5 % [facility] Neutrophils Absolute 4.1 1.6 - 7.0 10 3/uL [facility] Lymphocyte Absolute 0.7(L) 0.8 - 2.9 10 3/uL [facility] Monocytes Absolute 0.47 0.14 - 0.66 10 3/uL [facility] Eosinophils Absolute 0.01 0.00 - 0.22 10 3/uL [facility] Basophils Absolute 0.01 0.00 - 0.06 10 3/uL [facility] Immature Granulocytes % 0.2 0.0 - 1.0 % [facility] Blood specimen (specimen) BLOOD SPECIMEN / Unknown 07/27/2015 9:41 AM CDT 07/27/2015 9:44 AM CDT Bernarda Gupta MD LAB - HEMATOLOGY ORDERABLES Performing Organization Address City/[facility]/ZIP Co de Phone Number [address] [phone] * (ABNORMAL) COMPREHENSIVE METABOLIC PANEL (07/27/2015 9:41 AM CDT) Only the most recent of2 resultswithin the time period is included. BUN 10 7 - 26 mg/dL [facility] Creatinine 0.8 0.6 - 1.2 mg/dL [facility] Sodium 143 136 - 145 mmol/L [facility] Potassium 3.5 3.5 - 4.5 mmol/L [facility] Chloride 109(H) 98 - 107 mmol/L [facility] CO2 25 22 - 29 mmol/L [facility] Glucose 87 70 - 115 mg/dL [facility] Calcium 8.6 8.4 - 10.2 mg/dL [facility] Protein Total 6.6 6.0 - 8.3 g/dL [facility] Albumin 3.4 3.4 - 5.0 g/dL [facility] Bilirubin Total 0.5 0.2 - 1.2 mg/dL [facility] Alkaline Phosphatase 95 40 - 150 Units/L [facility] ALT 21 0 - 55 Units/L [facility] AST 17 5 - 34 Units/L [facility] Anion Gap 13 8 - 18 [facility] BUN/Creatinine Ratio 13 7 - 23 [facility] Osmolality Calculated 279 270 - 300 mOsm/kg [facility] Albumin/Globulin Ratio 1.1 1.1 - 2.3 [facility] eGFR >60 >60 mL/min/1.7 3 m2 [facility] Blood specimen (specimen) BLOOD SPECIMEN / Unknown 07/27/2015 9:41 AM CDT 07/27/2015 9:44 AM CDT Bernarda Gupta MD LAB - CHEMISTRY O RDERABLES Performing Organization Address City/[facility]/ZIP Co de Phone Number [address] [phone] * BASIC METABOLIC PANEL (CALCIUM TOTAL) (06/08/2015 9:14 AM CDT) BUN 10 7 - 26 mg/dL [facility] Creatinine 0.8 0.6 - 1.2 mg/dL [facility] Sodium 142 136 - 145 mmol/L [facility] Potassium 3.8 3.5 - 4.5 mmol/L [facility] Chloride 107 98 - 107 mmol/L [facility] CO2 28 22 - 29 mmol/L [facility] Glucose 93 70 - 115 mg/dL [facility] Calcium 9.9 8.4 - 10.2 mg/dL [facility] Anion Gap 11 8 - 18 [facility] BUN/Creatinine Ratio 13 7 - 23 [facility] Osmolality Calculated 278 270 - 300 mOsm/kg [facility] eGFR >60 >60 mL/min/1.7 3 m2 [facility] Blood specimen (specimen) BLOOD SPECIMEN / Unknown 06/08/2015 9:14 AM CDT 06/08/2015 9:24 AM CDT Jose Yuan MD LAB - CHEMISTRY DIANA VALDEZ [facility] Organization Address City/State/[facility] Co de Phone Number [facility] [address] [place] [address] * PET CT WHOLE BODY (04/29/2015 11:39 AM CDT) Anatomical Region Laterality Modality Other Impressions 04/29/2015 4:05 PM CDT IMPRESSION: 1. There is no abnormal FDG avid lesion to suggest malignancy. 2. FDG avid area at the inferior right aspect of the enlarged uterus, maybe related to menstrual cycle; however, ultrasound evaluation is recommended if clinically indicated. This report was approved by Bridget Reyna on 04/29/2015 1:06 PM . I, Dr. ARIES ORELLANA M.D. have personally reviewed and interpreted this examination/study. This report was electronically signed by ARIES ORELLANA M.D. on 04/29/2015 4:05 PM . Narrative 04/29/2015 4:05 PM CDT Procedure: PET/CT Study. Referring Physician: Dr. ARCHIBALD D NAZZAL HISTORY: 44-year-old female with a history of T3 N0 colonic adenocarcinoma status post left hemicolectomy and chemotherapy who presents with 2 new indeterminate liver lesions identified on a recent surveillance MRI. Lesions within segments 5 and 8 and demonstrates signal characteristics suggestive of focal nodular hyperplasia. Evaluate for initial treatment strategy. TECHNIQUE: 10.24 mCi of F-18 FDG by IV in the left antecubital fossa. PET/CT image acquisition from top of the head to the feet after approximately 60 minutes post-injection with the CT being low-dose, non-contrast. No separate report for the CT was used for attenuation correction and anatomic localization. Blood glucose level at the time of injection was 91 mg/dl. Comparison: No prior study is available for comparison. FINDINGS: Head and neck: No abnormal FDG focus is identified in the brain. Deviated nasal septum is noted. There are no hypermetabolic or enlarged cervical lymph nodes. Non-FDG avid subcentimeter multiple bilateral level II and level III cervical lymph nodes are noted, likely benign. There is evidence of brown fat FDG uptake at the lower neck, upper chest, supraclavicular and paraspinal. Chest: No abnormal FDG focus is identified within the lungs. The lungs are free of focal consolidations.A4 mm non-FDG avid left upper lobe pulmonary nodule that is too small to be characterized by PET/CT. There is no pleural effusion or pneumothorax. There is no supraclavicular, axillary, mediastinal or hilar lymphadenopathy. Non-FDG avid sub-centimetric bilateral axillary lymph nodes are noted, likely benign. Non-FDG centimetric right paratracheal, precarinal and AP window are noted, likely benign. The heart size is normal. There is no pericardial effusion. Abdomen and pelvis: Outside MRI show two liver lesions, however the images were not available for comparison. In today exam, the liver show heterogeneous FDG uptake without evidence of abnormal FDG avid lesion. Gallbladder appear normal without biliary ductal dilatation. The spleen, pancreas, and adrenal glands appear normal. The kidneys appear normal without hydronephrosis. The small and large bowel are normal in caliber without obstruction. No free intraperitoneal air or free fluid is identified. No hypermetabolic mesenteric or retroperitoneal lymph node is seen. A 3.4 cm x 2 cm FDG avid area at the inferior right aspect of the enlarged uterus with SUV Max of 3.9. For reference, SUV max of liver is 2.4. Musculoskeletal: No suspicious blastic lesions. No abnormal FDG focus is identified within the osseous structures. Procedure Note Aries Orellana MD - 03/01/2018 Procedure: PET/CT Study. Referring Physician: Dr. CRISTELA VILLASENOR HISTORY: 44-year-old female with a history of T3 N0 colonic adenocarcinomastatus post left hemicolectomy and chemotherapy who presents with 2 newindeterminate liver lesions identified on a recent surveillance MRI.Lesions within segments 5 and 8 and demonstrates signal characteristics suggestive of focal nodularhyperplasia. Evaluate for initial treatment strategy. TECHNIQUE: 10.24 mCi of F-18 FDG by IV in the left antecubital fossa.PET/CT image acquisition from top of the head to the feet afterapproximately 60 minutes post-injection with the CT being low-dose,non-contrast. No separate report for the CT was used for attenuation correction and anatomic localization. Blood glucoselevel at the time of injection was 91 mg/dl. Comparison: No prior study is available for comparison. FINDINGS: Head and neck: No abnormal FDG focus is identified in the brain. Deviated nasal septum is noted. There are no hypermetabolic or enlargedcervical lymph nodes. Non-FDG avid subcentimeter multiple bilateral levelII and level III cervical lymph nodes are noted, likely benign. There isevidence of brown fat FDG uptake at the lower neck, upper chest, supraclavicular and paraspinal. Chest: No abnormal FDG focus is identified within the lungs. The lungs arefree of focal consolidations.A4 mm non-FDG avid left upper lobe pulmonarynodule that is too small to be characterized by PET/CT. There is nopleural effusion or pneumothorax. There is no supraclavicular, axillary, mediastinal or hilarlymphadenopathy. Non- FDG avid sub-centimetric bilateral axillary lymphnodes are noted, likely benign. Non-FDG centimetric right paratracheal,precarinal and AP window are noted, likely benign. The heart size is normal. There is no pericardial effusion. Abdomen and pelvis: Outside MRI show two liver lesions, however the imageswere not available for comparison. In today exam, the liver showheterogeneous FDG uptake without evidence of abnormal FDG avid lesion.Gallbladder appear normal without biliary ductal dilatation. The spleen, pancreas, and adrenal glands appearnormal. The kidneys appear normal without hydronephrosis. The small and large bowel are normal in caliber without obstruction. Nofree intraperitoneal air or free fluid is identified. No hypermetabolic mesenteric or retroperitoneal lymph node is seen. A 3.4 cm x 2 cm FDG avid area at the inferior right aspect of the enlargeduterus with SUV Max of 3.9. For reference, SUV max of liver is 2.4. Musculoskeletal: No suspicious blastic lesions. No abnormal FDG focus isidentified within the osseous structures. IMPRESSION IMPRESSION: 1. There is no abnormal FDG avid lesion to suggest malignancy. 2. FDG avid area at the inferior right aspect of the enlarged uterus,maybe related to menstrual cycle; however, ultrasound evaluation isrecommended if clinically indicated. This report was approved by Bridget Reyna on 04/29/2015 1:06 PM . I, Dr. ARIES ORELLANA M.D. have personally reviewed and interpreted thisexamination/study. This report was electronically signed by ARIES ORELLANA M.D. on 04/29/20154:05 PM . Cristela Villasenor MD [place] ORDERABLES * GLUCOSE - POINT OF CARE (AMB) [facility] (04/29/2015) Only the most recent of2 resultswithin the time period is included. Aries Orellana MD LAB - POINT OF CARE ORDERABLES [facility] * CANCER ANTIGEN ([place]) 19-9 (04/06/2015 11:59 AM CDT) CA 19-9 26 0 - 35 U/mL [facility] ([facility]) Comment:Lane ECLIA methodol ogy Blood specimen (specimen) BLOOD SPECIMEN / Unknown 04/06/2015 11:59 AM CDT 04/06/2015 12:19 PM CDT Narrative [facility] ([facility]) - 04/07/2015 6:18 AM CDT Performed at: [address] [place] [address] [id number] Software Developer Mid Level: Arie Meek PhD, Phone: [phone] Cristela Villasenor MD LAB - CHEMISTRY DIANA VALDEZ [facility] ([facility]) * ALPHA FETOPROTEIN BLOOD TUMOR (04/06/2015 11:59 AM CDT) Alpha-Fetoprotei n Tumor Marker 1.9 0.0 - 8.3 ng/mL [facility]) Comment:Laen ECLIA methodol ogy Blood specimen (specimen) BLOOD SPECIMEN / Unknown 04/06/2015 11:59 AM CDT 04/06/2015 12:20 PM CDT Narrative [facility] ([facility]) - 04/07/2015 6:18 AM CDT Performed at: [address] [place] [address] [id number] Software Developer Mid Level: Arie Meek PhD, Phone: [phone] Cristela Villasenor MD LAB - CHEMISTRY DIANA VALDEZ [facility]) * CEA BLOOD (04/06/2015 11:59 AM CDT) CEA 1.1 <=5.0 ng/mL [facility] Blood specimen (specimen) BLOOD SPECIMEN / Unknown 04/06/2015 11:59 AM CDT 04/06/2015 12:12 PM CDT Cristela Villasenor MD LAB - CHEMISTRY DIANA VALDEZ [address] [phone]
--- OUTSIDE RECORDS SUMMARY | 2025-01-16 10:14 | XMS_ITS | Referral Summary ---
Author Organization [facility] Address [address] [place] [address] Care Team Providers Care General Administrator Name Role Phone Unknown, Notinfile Primary Care Provider Unavail able Encounters Date Type Department Care Team Description 01/11/2025 Telephone [facility] [address] [place] [address] [facility]LE[facility] 01/05/2025 Telephone [facility] [address] [place] [address] [facility] ALEISHA 12/22/2024 Telephone [facility] [address] [place] [address] [facility] [place] [address] [place] [address] [facility] 12/17/2024 Telephone [facility] [address] [place] [address] [facility] [place] [address] [facility] 12/11/2024 Telephone [facility] [address] [place] [address] Radha Le CMA from Last 3 Months Allergies Active Allergy Reactions Criticality Noted Date [...] 08/01/2018 Carcinoma of colon (CMS/HCC) 10/06/2014 08/22/2021 Immunizations Name Administration Dates Next Due Influenza, Quadrivalent, Split, Intramuscular Influenza, Quadrivalent, Spl it, Preservative Free, Intramuscular 09/14/2020,10/17/2016 Influenza, Trivalent, Preservative Free, Intramu scular 09/08/2015,09/24/2012 Moderna SARS-CoV-2 Monovalent Vaccination (12+ Y RS) 02/14/2021,01/11/2021 Pneumococcal Polysaccharide PPV23 09/08/2015 Tdap 10/08/2016,10/08/2016 Social History Tobacco Use Types Packs/Day Years [...] and Family Once a week 12/26/2020 Attends [employer] More than 4 times per year [...] more drinks on one occasion? Never 01/16/2024 [facility] - Occupational Stress [...] on file Legal Sex Female 3:37 AM CORRECTION OFFICER REFORMATORY Gender Identity Not on file Sexual Orientation Not on file Last Filed Vital Signs Vital Sign Reading Time Taken Comments Blood Pressure 129/82 09/17/2024 8:59 AM CDT Pulse 68 09/17/2024 8:59 AM CDT Temperature 36.3 C (97.3 F) 01/16/2024 9:05 AM CORRECTION OFFICER REFORMATORY Respiratory Rate 15 01/16/2024 10:45 AM CORRECTION OFFICER REFORMATORY Oxygen Saturation 100% 01/16/2024 10:45 AM CORRECTION OFFICER REFORMATORY Inhaled Oxygen Concentration - - Weight 63.5 kg (140 lb) 09/17/2024 8:59 AM CDT Height 160 cm (5' 3 ) 09/17/2024 8:59 AM CDT Body Mass Index 24.8 09/17/2024 8:59 AM CDT Plan of Treatment Scheduled Procedures Name Priority Associated Diagnoses Date/Ti me COLONOSCOPY Open Access Malignant neoplasm of colon, unspecified part of colon (HCC) Procedures Procedure Name Priority Date/Time Associated Diagnosis Comments SCREENING MAMMOGRAM BILATERAL W ABHILASH Schedule Routine, Read Routine (OP Routine) 01/09/2024 2:40 PM CORRECTION OFFICER REFORMATORY Encounter for screening mammogram for malignant neoplasm of breast HIGH RISK HPV DNA DETECTION WITH GENOTYPING Routine 12/31/2023 10:34 AM CORRECTION OFFICER REFORMATORY ASCUS with positive high risk HPV cervical Well woman exam with routine gynecological exam COLONOSCOPY 12/26/2020 12:40 PM CORRECTION OFFICER REFORMATORY from Last 3 Months or Most Recently Relevant to Health Maintenance Results * Screening Mammogram Bilateral W Abhilash (01/09/2024 2:40 PM CORRECTION OFFICER REFORMATORY) Anatomical Region Laterality Modality Breast Bilateral Mammography Narrative 01/09/2024 3:03 PM CORRECTION OFFICER REFORMATORY Examination: Screening Mammogram Bilateral W Abhilash: 01/09/24 [...] with Genotyping (Molecular component) (12/31/2023 10:34 AM CORRECTION OFFICER REFORMATORY) HPV HR 16 Not Detected Not Detected [facility] HPV HR 18 Not Detected Not Detected [facility] HPV HR Non 16/18 Not Detected Not Detected [facility] Comment: Interpretive Data Nucleic acid amplification for [...] this test have been verified by the [facility]. Correlate with separately reported cytology results, as applicable. Interpretive data last revised 23 Endocervical 12/31/2023 10:3 4 AM CORRECTION OFFICER REFORMATORY 12/31/2023 3:19 PM CORRECTION OFFICER REFORMATORY Narrative [facility] - 01/02/2024 7:43 PM CORRECTION OFFICER REFORMATORY Clinical history and diagnosis->abnormal pap/ annual Number of vials->1 Testing type->Screening Last menstrual period (date if known)->11-30-23 Menstrual status->Perimenopausal us Tania Little MD PhD LAB BODY FLUIDS AND ST OOLS ORDERABLES Final Result [facility] [address] [place] [address] * COLONOSCOPY (12/26/2020 12:40 PM CORRECTION OFFICER REFORMATORY) Anatomical Region Laterality Modality Other Narrative Procedure Note Kade Galvin MD - 12/26/2020 12:40 PM [facility] Patient Name: Elodia Walton Procedure Date: 12/26/2020 12:40 PM Date of : 1970 Admit Type: Outpatient Age: 50 Gender: Female Attending MD: Cassidy Witt Room: [facility]OM 3 Note Status: Addendum Procedure: Colonoscopy Indications: High risk colon cancer surveillance: Personalhistory of colon cancer, Last colonoscopy: 2019. S/presection and chemo. Had ?6 colonoscopies over 9 years period after surgery. Surveillance colonoscopy found some polyps. Last colonoscopy was in 2019. Referring MD: Ishaan Malik M.D. Providers: Surachai Amornsawadwattana, M.D. Medicines: Monitored Anesthesia Care Complications: No [...] The scope was passed under direct vision.The CF [id number] endoscope was introduced throughthe anus and advanced to the cecum, identified by appendiceal orifice and ileocecal valve. The colonoscopy was performed without difficulty. The patient tolerated the procedure well. The quality of the bowel preparation was evaluated using the BBPS ([place] Bowel Preparation Scale) with scores of:Right Colon [...] On: 12/26/2020 12:40 PM Recognized by the [employer] [employer] for promoting quality [...] Most Recently Relevant to Health Maintenance Insurance [employer] [place] [employer] [place] [facility] Advance Directives For more information, please contact: [phone] * Full Code (Latest Code Status on File) Date Activated Date Inactivated Comments 01/16/2024 8:56 AM 01/16/2024 3:12 PM * Full Code Date Activated Date Inactivated Comments 12/26/2020 11:55 AM 12/26/2020 7:48 PM Care Teams General Administrator Relationship Specialty Start Date End Date Unknown, Notinfile PCP - General 03/30/24
--- OUTSIDE RECORDS SUMMARY | 2025-01-16 10:14 | XMS_ITS | Clinical Summary ---
Author Organization [facility] [employer] Address [address] [place] [address] Care Team Providers Care Telesales Team Leader Name Role Phone Unavailable Primary Care Provider Unavailabl e Source Comments [facility] [employer],non-owned Affiliates and Associated Physician Practices is amultiple site organization consisting of ambulatory clinics and hospital sitesin [place], [place], [place] and [place]. This disclosure is being madepursuant to the Care Everywhere program and may not contain all information available regarding this patient. Last updated 18.[facility] [employer] Allergies Active Allergy Reactions Criticality Noted Date Comments Penicillins Rash Medium 04/06/2015 Active Problems Problem Noted Date Diagnosed Date [...] Mass Index 28.17 04/25/2017 2:17 PM CDT Plan of Treatment Health Maintenance Due Date Last Done Comments COLOGUARD (AGES 45-75) - COL ON CA SCREENING 1970 COLON MONITORING 1970 COLONOSCOPY - COLON CA SCREENING 1970 CT COLONOGRAPHY - COLON CA SCREENING 1970 Colorectal Cancer Screening 1970 FIT - COLON CA SCREENING 1970 FLEX SIG - COLON CA SCREENING 1970 LIPID TESTING 1970 MAMMOGRAM 1970 PAP SMEAR 1970 HIV SCREENING 1985 HEPATITIS C SCREENING 08/13/1988 DTAP/TDAP/TD VACCINES (1 - Tdap) 1989 HEPATITIS B VACCINE (1 of 3 - 19+ 3-dose series) 1989 PNEUMOCOCCAL VACCINE 50+ (1 of 1 - PCV) 2020 ZOSTER VACCINE (1 of 2) 2020 COVID-19 VACCINE ( - 2023-2 5 season) 2024 INFLUENZA VACCINE (#1) 2024 DEPRESSION SCREENING 12/02/2024 HIB VACCINE Aged Out No longer eligi ble based on patient's age to complete this topic HPV VACCINE Aged Out No longer eligi ble based on patient's age to complete this topic MENINGOCOCCAL (Group B) VACCINE Aged Out No longer eligible based on patient's age to complete this topic MENINGOCOCCAL VACCINE Aged Out No keegan kriss eligible based on patient's age to complete this topic PNEUMOCOCCAL VACCINE Aged Out No long er eligible based on patient's age to complete this topic
--- OUTSIDE RECORDS SUMMARY | 2025-01-16 10:14 | XMS_ITS | Referral Summary ---
Author Organization [facility] Address [address] [place] [address] Care Team Providers Care Control Cabinet Assembler Name Role Phone Unavailable Primary Care Provider Unavailabl e Source Comments [facility],non-owned Affiliates and Associated Physician Practices is amultiple site organization consisting of ambulatory clinics and hospital sitesin [place], [place], [place] and [place]. This disclosure is being madepursuant to the Care Everywhere program and may not contain all information available regarding this patient. Last updated 18.[facility] Allergies Active Allergy Reactions Criticality Noted Date [...] 04/25/2017 2:17 PM CDT Plan of Treatment Not on file
--- OUTSIDE RECORDS SUMMARY | 2025-01-16 10:17 | XMS_ITS | Continuity of Care Document ---
Author Organization [facility] Address [address] [place] [address] Phone Care Team Providers Care Gunner'S Mate M Name Role Phone Henrique Trinidad MD Unavailable Unavailable Allergies, Adverse Reactions, Alerts Substance Reaction Status Criticality Penicillins Rash Active No Information Medications Medication Instructions Dosage Effective Dates (start - stop) Status Comments multivitamin tablet - Active Procedures Procedure Date Office/outpatient visit,[facility] 2017 Advance Directives Directive Yes / No Effective Date File Name No Information Encounters Encounter Description Practice Location Reason(s) For Visit Diagnoses Date Provider Providers Copied on Encounter Office/outpa [facility]ient [place] [facility] [place] [place] [facility], [address], [id number], [phone] [facility] left knee pain (chief complaint) Chondromalacia patellae, left knee 8 Vivi Duenas. [address] [facility], [facility] [address], [place], [id number] , . tel:[phone] Family History Family Member Type Diagnosis Age At Onset Brother Problem (finding) hypertension Mother Problem (finding) osteoporosis Paternal aunt Problem (finding) Cancer, unknown Payers Payer name Insurance type Covered alliance party ID Osiris nicohlasalla(s) [facility] [id number] Social History Type Description Quantity Date Captured [...] Mental Status Date Cognitive Assessment Orientation - [place] ed to time, place, person, situation.Normal Orientation Patient Care Teams Name Effective Dates (start - stop) Status Members No Information
[2025-01-16 10:19] VITALS: BP 119/76; PULSE 84; RESP 16; TEMP 36.8; O2SAT 100
--- NOTE | 2025-01-16 10:58 | ED_ITS ---
HPI - General Adult General Chief complaint: Extremity Injury, Lower Stated complaint: lt ankle bruise and sore Source: patient Mode of arrival: ambulatory Limitations: no limitations History of Present Illness HPI narrative: Patient presents for evaluation of left ankle pain and swelling. Symptom onset 1700 last night. She tripped over a rug in the top of her steps. She fell forward a few steps but caught herself on the railing so she did not actually fall to the ground. At rest she has no pain whatsoever but states with weight- bearing and movement she does have 4/10 pain in the left ankle. She has asso ciated bruising. She took Aleve this morning which seemed to help. Related Data Allergies Allergy/AdvReac Type Severity Reaction Status Date / Time Penicillins Allergy Intermediate Rash Verified 01/16/25 10:40 Review of Systems Review of Systems: CONSTITUTIONAL: Denies fever, chills, or sweats. EYES: Denies visual changes, redness, or discharge. ENT: Denies rhinorrhea, congestion, sore throat, or otalgia. CARDIOVASCULAR: Denies chest pain, palpitations, or edema. RESPIRATORY: Denies cough or dyspnea. GASTROINTESTINAL: Denies abdominal pain, nausea, vomiting, or diarrhea. GENITOURINARY: Denies dysuria or hematuria. SKIN: Reports abrasion to the anterior aspect of the left lower leg. Reports bruising to the left ankle MUSCULOSKELETAL: Reports pain and swelling in left ankle. NEUROLOGIC: Denies headache, numbness, dizziness, or weakness. PSYCHIATRIC: Denies anxiety or depression. [facility] Past Medical History Medical History Colon cancer Tetralogy of Fallot Surgical History Surgical History H/O hemicolectomy H/O tooth extraction Family History Family History Mother No pertinent past medical history Father No pertinent past medical history Social History Social History Smoking status: Never smoker Alcohol intake: current Alcohol use details: social Substance use: never Gender identity (if verbalized by the patient): Female Exam Narrative: GENERAL: Well-appearing, well-nourished, and in no acute distress. HEAD: Normocephalic, atraumatic. EYES: PERRLA and EOMI. ENT: Nares clear, no rhinorrhea or epistaxis. Mucous membranes moist. Oropharynx without tonsillar hypertrophy exudate or other lesions. Bilateral TMs pearly pruitt nonbulging NECK: Supple. No adenopathy or masses. No carotid bruits or JVD CHEST: Clear to auscultation. No respiratory distress. No wheezes rales or rho nchi HEART: Regular rate and rhythm. No murmur heard. Normal peripheral pulses. ABDOMEN: Soft, nontender, nondistended, normal active bowel sounds. EXTREMITIES: There is soft tissue swelling left ankle. There is tenderness over the left lateral malleolus. Able to dorsi and plantar flex the left foot. SKIN: Preparations to the anterior aspect the left lower leg. There is ecchymosis noted circumferentially to the left ankle. NEURO: No focal deficits. Alert and oriented x3. PSYCH: Normal mood and affect. Course Course Emergency Course: This is a 54-year-old female who presented for evaluation of left ankle pain. X-ray showed closed left distal fibula fracture. I contacted Orthopedics, Dr. Becker, who recommended that she remain nonweightbearing. She she should be placed in a short-leg OCL and provided with crutches. She was splinted provided with crutches. Advised on nonweightbearing status. Will discharge with orthopedic follow-up. Go to the emergency department for intractable pain, paresthesias. Patient in agreement with plan of care. Level of Care: Express Care Visit Vital Signs Vital signs: Vital Signs Temperature 36.8 C 01/16/25 10:19 Pulse Rate 84 01/16/25 10:19 Respiratory Rate 16 01/16/25 10:19 Blood Pressure 119/76 01/16/25 10:19 Pulse Oximetry 100 01/16/25 10:19 Oxygen Delivery Room Air 01/16/25 10:19 Temperature 36.8 C 01/16/25 10:19 Pulse Rate 84 01/16/25 10:19 Respiratory Rate 16 01/16/25 10:19 Blood Pressure 119/76 01/16/25 10:19 Pulse Oximetry 100 01/16/25 10:19 Oxygen Delivery Room Air 01/16/25 10:19 Procedures Orthopedic Splinting/Casting Injury #1: Splinting/Casting Date: 01/16/25 Splinting/Casting Time: 12:34 Side: left Lower Extremity Immobilizer: stirrup splint Splint: customized in ED Pre-Formed: airgel ankle stirrup OCL: short leg Pre-Procedure Neuro Vascular Exam: normal Post-Procedure Neuro Vascular Exam: normal Medical Decision Making Vital Signs Vital Signs: Vital Signs Temperature 36.8 C 01/16/25 10:19 Pulse Rate 84 01/16/25 10:19 Respiratory Rate 16 01/16/25 10:19 Blood Pressure 119/76 01/16/25 10:19 Pulse Oximetry 100 01/16/25 10:19 Oxygen Delivery Room Air 01/16/25 10:19 Temperature 36.8 C 01/16/25 10:19 Pulse Rate 84 01/16/25 10:19 Respiratory Rate 16 01/16/25 10:19 Blood Pressure 119/76 01/16/25 10:19 Pulse Oximetry 100 01/16/25 10:19 Oxygen Delivery Room Air 01/16/25 10:19 Imaging Data Radiologist's impression: EXAMINATION: XR ankle LT min 3V DATE: 01/16/2025 11:07 INDICATION: Left ankle pain and swelling post fall TECHNIQUE: Anteroposterior, oblique, mortise, and lateral views of the left ankle were obtained. COMPARISON: None. FINDINGS: There is an oblique fracture through the distal fibula with a fracture plane exiting medially at the level of the tibiotalar joint. There is one cortical width lateral displacement. No other fracture identified. Specifically the medial and posterior malleoli as well as the talar dome are intact. Ankle mortise remains congruent. 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 Small plantar calcaneal spur. Soft tissue swelling overlying the lateral malleolus and extending anterior to the ankle. No ankle joint effusion. IMPRESSION: 1. Minimally displaced oblique fracture of the distal left fibula consistent with a Perdomo type B injury pattern. IMPRESSION: 1. Discharge Plan Discharge Clinical Impression: Closed traumatic displaced fracture of distal end of fibula Patient Disposition: Home, Self-Care Condition: Stable Instructions: Antibiotic Form, Ankle Fracture (ED) Additional Instructions: PLEASE DO NOT PLACE WEIGHT ON YOUR LEFT LOWER EXTREMITY AMBULATE WITH CRUTCHES PLEASE FOLLOW UP WITH ORTHOPEDICS THIS UPCOMING WEEK Patient Language: Tongan Prescriptions: New hydrocodone-acetaminophen 5-325 mg tablet 1 - 2 tablet PO Q6H PRN (Reason: pain) Qty: 20 0RF Follow-up/Referrals: Seun Becker MD [Physician] - Stand Alone Forms: Work/School Release IP Time of Disposition: 12:27
== END 2025-01-16 12:45 | disposition home or self-care (01) ==
PROVIDERS: Emergency Provider Nurse Practitioner
DX: S82.832A Other fracture of upper and lower end of left fibula, initial encounter for closed fracture (principal); W10.9XXA Fall (on) (from) unspecified stairs and steps, initial encounter
CPT/HCPCS: 29515; 73610; 99214; G0463